=== PATIENT | female | born 1955 | race Caucasian/White ===

== ENCOUNTER → 2019-06-19 10:10 | Outpatient (CLI) | payer OTHER, MEDICAID, SELFPAY | PROVIDERS: PCP Family Medicine; Visit Provider Family Medicine | DX: M85.851 Other specified disorders of bone density and structure, right thigh (principal); Z78.0 Asymptomatic menopausal state | CPT/HCPCS: 77080 ==

== ENCOUNTER → 2023-08-23 09:42 | Outpatient (CLI) | payer MEDICARE, MEDICAID, SELFPAY ==
[2023-08-23 19:38] LABS: Add Manual Diff / Slide Review NO; Basophils Absolute Auto 0 /uL (0-100); Basophils Percent Auto 0.4 % (0-2); Eosinophils Absolute Auto 1000 /uL (0-450); Eosinophils Percent Auto 16.9 % (2-4); Hematocrit 44.2 % (36-46); Hemoglobin 15.2 g/dL (12.0-16.0); Lymphocytes Absolute Auto 1600 /uL (1100-4500); Lymphocytes Percent Auto 25.4 % (25-40); Mean Corpuscular HGB Conc 34.3 % (30-36); Mean Corpuscular Hemoglobin 28.7 PG (26-34); Mean Corpuscular Volume 83.6 fL (80-100); Monocytes Absolute Auto 500 /uL (0-900); Monocytes Percent Auto 7.8 % (3-14); Neutrophils Absolute Auto 3100 /uL (1500-7000); Neutrophils Percent Auto 49.5 % (50-75); Platelet Count 183 X10^3/uL (150-400); Red Blood Cell Count 5.28 X10^6/uL (4.0-5.2); White Blood Cell Count 6.2 X10^3/uL (4.5-11.0)
[2023-08-23 20:16] LABS: HEMOLYSIS < 15 (0-50); Iron 164 ug/dL (37-170)
[2023-08-23 20:23] LABS: BUN Creatinine Ratio 35.7 (6-22); Blood Urea Nitrogen 20 mg/dL (7-17); Calcium 9.4 mg/dL (8.4-10.2); Carbon Dioxide 26 mmol/L (22-32); Chloride 106 mmol/L (98-107); Cholesterol 159 mg/dL (140-199); Estimated Glomerular Filt Rate > 60 mL/min (>60); Glucose 119 mg/dL (80-110); HDL Cholesterol 48 mg/dL (40-60); HEMOLYSIS < 15 (0-50); LDL Cholesterol Calculated 84 mg/dL (<100); Potassium 4.2 mmol/L (3.4-5.1); Sodium 139 mmol/L (137-145); Triglycerides 134 mg/dL (35-150)
[2023-08-23 20:27] LABS: Percent Iron Saturation 43 % (15-50); Total Iron Binding Capacity 378 ug/dL (265-497); Transferrin 303 mg/dL (206-381)
[2023-08-23 20:50] LABS: TSH w/ Reflex to FT4 1.34 uIU/mL (0.47-4.68)
[2023-08-23 21:12] LABS: Vitamin B12 618 pg/mL (239-931)
== END ==
PROVIDERS: PCP Family Medicine; Visit Provider Family Medicine
DX: R53.83 Other fatigue (principal); Z13.6 Encounter for screening for cardiovascular disorders; Z13.1 Encounter for screening for diabetes mellitus; Z13.220 Encounter for screening for lipoid disorders; Z78.9 Other specified health status
CPT/HCPCS: 80048; 80061; 82607; 83540; 83550; 84443; 85025

== ENCOUNTER → 2023-10-18 10:46 | Outpatient (CLI) | payer MEDICARE, MEDICAID, SELFPAY ==
--- NOTE | 2023-10-18 10:49 | DI.RAD.S_ITS ---
PROCEDURE: XR DEXA AXIAL SKELETON INDICATIONS: menopause COMPARISON: [facility], CR, XR DEXA AXIAL SKELETON, 06/19/2019, 10:39. FINDINGS: Lumbar Spine: Bone mineral density 1.055 g/cm2, T score 0.1. Left Hip: Bone mineral density is 0.851 g/cm2, T score -0.7. Left Femoral Neck: Bone mineral density 0.684 g/cm2, T score -1.5. Right Hip: Bone mineral density 0.867 g/cm2, T score -0.6. Right Femoral Neck: Bone mineral density 0.649 g/cm2, T score -1.8. Fracture Risk Calculation (when applicable): 10-year fracture risk of a major osteoporotic fracture 10% and of a hip fracture 1.5%. (T score greater or equal to -1.0 to: NORMAL) (T score from -1.1 to -2.4: OSTEOPENIA) (T score less than or equal to -2.5: OSTEOPOROSIS) IMPRESSION: Osteopenia Follow-up guidelines as follows: Osteoporosis: Consider a repeat DEXA and Vertebral Fracture Assessment (VFA) exam in 2 years or sooner if medically necessary, to reassess this patient's status. Osteopenia: Consider a repeat DEXA in 2-3 years to reassess this patient's status, or if there is a new clinical indication. Normal: Consider a repeat DEXA in 5 years or sooner, or if there is a new clinical indication. Dictated by: Keith Harmon M.D. on 10/18/2023 at 12:38 Approved by: Keith Harmon M.D. on 10/18/2023 at 12:40
== END ==
PROVIDERS: PCP Family Medicine; Referring Provider Family Medicine; Visit Provider Family Medicine
DX: M85.80 Other specified disorders of bone density and structure, unspecified site (principal); Z78.0 Asymptomatic menopausal state
CPT/HCPCS: 77080

== ENCOUNTER → 2024-06-16 14:20 | Outpatient (CLI) | payer MEDICARE, MEDICAID, SELFPAY | PROVIDERS: PCP Family Medicine; Visit Provider Family Medicine | DX: H20.9 Unspecified iridocyclitis (principal); M79.10 Myalgia, unspecified site; R53.83 Other fatigue; B37.2 Candidiasis of skin and nail | CPT/HCPCS: 87220 ==

== ENCOUNTER → 2024-07-01 13:05 | Outpatient (CLI) | payer MEDICARE, MEDICAID, SELFPAY ==
[2024-07-01 20:01] LABS: Erythrocyte Sedimentation Rate 2 MM/HR (0-20)
[2024-07-03 22:07] LABS: Tissue Transglutaminase IgG 6 U/mL (0-5)
[2024-07-05 01:39] LABS: Alder IgE <0.10 kU/L (Class 0); Alternaria alternata IgE <0.10 kU/L (Class 0); Aspergillus fumigatus IgE <0.10 kU/L (Class 0); Box Elder IgE <0.10 kU/L (Class 0); Cat Dander IgE <0.10 kU/L (Class 0); Cladosporium herbarum IgE <0.10 kU/L (Class 0); Cockroach IgE <0.10 kU/L (Class 0); Cottonwood IgE <0.10 kU/L (Class 0); D farinae IgE <0.10 kU/L (Class 0); D pteronyssinus IgE <0.10 kU/L (Class 0); Dog Dander IgE <0.10 kU/L (Class 0); Elm Tree IgE <0.10 kU/L (Class 0); IgE Mugwort <0.10 kU/L (Class 0); IgE Thistle,Russian <0.10 kU/L (Class 0); Immunoglobulin E 13 IU/mL (6-495); Mountain Cedar IgE <0.10 kU/L (Class 0); Mouse Urine Proteins IgE <0.10 kU/L (Class 0); Oak Tree IgE <0.10 kU/L (Class 0); Penicillium chrysogen IgE <0.10 kU/L (Class 0); Pigweed, Common IgE <0.10 kU/L (Class 0); Sheep Sorrel IgE <0.10 kU/L (Class 0); Silver Birch IgE <0.10 kU/L (Class 0); Timothy Grass IgE <0.10 kU/L (Class 0)
[2024-07-05 15:10] LABS: ANA Screen, IFA Negative (.)
[2024-07-08 16:08] LABS: HLA B27 Negative (.)
== END ==
PROVIDERS: PCP Family Medicine; Visit Provider Family Medicine
DX: H20.9 Unspecified iridocyclitis (principal); M79.10 Myalgia, unspecified site; R53.83 Other fatigue; B37.2 Candidiasis of skin and nail
CPT/HCPCS: 81374; 82785; 83516; 85651; 86003; 86038